=== PATIENT | female | born 1965 | race Caucasian/White ===

== ENCOUNTER 2018-05-24 12:38 | Observation (INO) | payer MEDICARE, MEDICAID ==
[~2018-05-24] VITALS: Ht 167.6 cm; Wt 77.3 kg
[2018-05-24 13:05] LABS: BASOPHILS % (AUTO) 0.6 % (0-1); EOSINOPHILS # (AUTO) 0.1 X10'3 (0-0.9); EOSINOPHILS % (AUTO) 1.5 % (0-6); HEMATOCRIT 34.4 % (35.0-45.0); HEMOGLOBIN 12.1 g/dl (12.0-16.0); LYMPHOCYTES # (AUTO) 1.3 X10'3 (1.1-4.8); LYMPHOCYTES % (AUTO) 25.7 % (21-51); MEAN CORPUSCULAR HEMOGLOBIN 31.3 PG (27.0-31.0); MEAN CORPUSCULAR HGB CONC 35.1 % (33.0-36.5); MEAN CORPUSCULAR VOLUME 89.2 FL (78-98); MEAN PLATELET VOLUME 7.4 FL (7.4-10.4); MONOCYTES # (AUTO) 0.4 X10'3 (0-0.9); NEUTROPHILS # (AUTO) 3.3 X10'3 (1.8-7.7); NEUTROPHILS % (AUTO) 65.2 % (42-75); PLATELET COUNT 245 X10'3 (140-440); RED BLOOD COUNT 3.86 X10'6 (4.20-5.60); RED CELL DISTRIBUTION WIDTH 12.9 % (11.5-14.5); WHITE BLOOD COUNT 5.1 X10'3 (4.5-11.0)
[2018-05-24 13:15] LABS: INR 0.9 INR; PARTIAL THROMBOPLASTIN TIME 24 SECONDS (22-32); PROTHROMBIN TIME 9.4 SECONDS (9.0-12.0)
[2018-05-24 13:20] LABS: ALANINE AMINOTRANSFERASE 58 U/L (12-78); ALBUMIN 3.8 G/DL (3.4-5.0); ALBUMIN/GLOBULIN RATIO 1.1 (1.1-1.5); ALKALINE PHOSPHATASE 66 IU/L (46-116); ANION GAP 7 (8-16); ASPARTATE AMINO TRANSFERASE 30 U/L (10-37); BILIRUBIN,TOTAL 0.3 MG/DL (0.1-1.0); BLOOD UREA NITROGEN 9 MG/DL (7-18); BUN/CREATININE RATIO 10.2 (6.6-38.0); CHLORIDE 102 MMOL/L (99-107); CREATININE 0.88 MG/DL (0.40-0.90); GLUCOSE 88 MG/DL (70-104); POTASSIUM 4.2 MMOL/L (3.5-5.1); SODIUM 135 MMOL/L (135-145); TOTAL CARBON DIOXIDE 26.1 MMOL/L (24-32); TOTAL PROTEIN 7.2 G/DL (6.4-8.2); eGFR 67 ML/MIN
[2018-05-24 13:56] LABS: ETHANOL < 0.010 GM/DL (0.0-0.010)
[2018-05-24] MEDS ORDERED: iohexol 350MG/ML 100ml bottle IV ONE (14:08)
[2018-05-24] MEDS ORDERED: acetaminophen 325mg tablet PO PRN ×2 (14:30)
[2018-05-24] MEDS ORDERED: magnesium 1gm/100ml D5W IVPB 100 ML IV PRN (14:30)
[2018-05-24] MEDS ORDERED: magnesium hydroxide 30ml (MOM) UD suspension PO PRN (14:30)
[2018-05-24] MEDS ORDERED: potassium Cl 40MEQ/NS 500ml 500 ML IV PRN ×2 (14:30)
[2018-05-24] MEDS ORDERED: magnesium Cl slow-release 64mg tablet PO PRN (14:30)
[2018-05-24] MEDS ORDERED: mag hydrox/Alum hydrox/simeth 30ml oral suspension PO PRN (14:30)
[2018-05-24] MEDS ORDERED: potassium Cl 20 mEq SR tablet PO PRN ×2 (14:30)
[2018-05-24] MEDS ORDERED: magnesium 4gm in 100ml NS 100 ML IV PRN (14:30)
[2018-05-24] MEDS: K and/or MAG REPLACEMENT MC SCH (14:30)
[2018-05-24] MEDS ORDERED: ondansetron/PF 4mg/2ml inj IV PRN (14:30)
[2018-05-24 14:39] LABS: CLARITY,URINE CLEAR (Clear); COLOR,URINE YELLOW (Yellow); GLUCOSE, URINE NEGATIVE (Neg); KETONES,URINE NEGATIVE (Neg); LEUKOCYTE ESTERASE ,URINE NEGATIVE (Neg); NITRITES, URINE NEGATIVE (Neg); OCCULT BLOOD,URINE NEGATIVE (Neg); PROTEIN,URINE NEGATIVE (Neg); UROBILINOGEN,URINE 0.2 E.U/dL (0.2-1.0)
[2018-05-24 14:41] LABS: UA COLLECTION TYPE CLN CATCH MIDSTREAM
[2018-05-24 14:48] LABS: URINE AMPHETAMINE SCREEN NEGATIVE (Neg); URINE BARBITUATE SCREEN NEGATIVE (Neg); URINE BENZODIAZEPINES SCREEN NEGATIVE (Neg); URINE CANNABINOID SCREEN NEGATIVE (Neg); URINE COCAINE SCREEN NEGATIVE (Neg); URINE METHADONE SCREEN NEGATIVE (Neg); URINE OPIATE SCREEN POSITIVE (Neg); URINE PHENCYCLIDINE SCREEN NEGATIVE (Neg)
[2018-05-24 14:56] LABS: HEMOGLOBIN A1C 5.8 % (4.5-6.2)
[2018-05-24] MEDS ORDERED: SUMA25TA35 PO (15:59)
[2018-05-24] MEDS ORDERED: LORA0.5T PO (15:59)
[2018-05-24] MEDS ORDERED: ESCI20TA38 PO (15:59)
[2018-05-24] MEDS ORDERED: ESTR2TAB7 PO (15:59)
[2018-05-24] MEDS ORDERED: LOSA50TA37 PO (15:59)
[2018-05-24] MEDS ORDERED: HYDR-3972 PO (15:59)
[2018-05-24] MEDS ORDERED: PANT40TA4 PO (15:59)
[2018-05-24] MEDS ORDERED: ALBU8.5H8 IH (15:59)
[2018-05-24] MEDS ORDERED: MAGN400C PO (16:00)
[2018-05-24] MEDS ORDERED: IBUP-1985 PO (16:00)
[2018-05-24] MEDS ORDERED: losartan 50mg tablet PO SCH (16:20)
[2018-05-24] MEDS ORDERED: albuterol 2.5 MG/3 ML nebule NEB PRN (16:20)
[2018-05-24] MEDS ORDERED: LORazepam 0.5 MG tablet PO PRN (16:20)
[2018-05-24] MEDS ORDERED: normal saline 1000ml 1,000 ML IV SCH (16:58)
[2018-05-24] MEDS: HYDROcodone/acetaminophen 10/325mg tab PO PRN (16:58)
[2018-05-24] MEDS ORDERED: enalaprilat dihydrate 2.5mg/2ml vial IV PRN (17:00)
[2018-05-24 17:05] VITALS: BP 205/86
[2018-05-24] MEDS: aspirin 325mg tablet PO SCH (17:13)
[2018-05-24 19:00] VITALS: BP 163/59
[2018-05-24] MEDS: temazepam 15mg capsule PO PRN (20:44)
[2018-05-24] MEDS ORDERED: temazepam 15mg capsule PO PRN (21:00)
[2018-05-24 23:00] VITALS: BP 112/48
[2018-05-25 01:57] LABS: HEMATOCRIT 32.1 % (35.0-45.0); HEMOGLOBIN 11.1 g/dl (12.0-16.0); MEAN CORPUSCULAR HEMOGLOBIN 30.8 PG (27.0-31.0); MEAN CORPUSCULAR HGB CONC 34.5 % (33.0-36.5); MEAN CORPUSCULAR VOLUME 89.3 FL (78-98); MEAN PLATELET VOLUME 7.8 FL (7.4-10.4); PLATELET COUNT 216 X10'3 (140-440); RED BLOOD COUNT 3.59 X10'6 (4.20-5.60); RED CELL DISTRIBUTION WIDTH 12.7 % (11.5-14.5); WHITE BLOOD COUNT 4.4 X10'3 (4.5-11.0)
[2018-05-25 02:13] LABS: ALANINE AMINOTRANSFERASE 43 U/L (12-78); ALBUMIN 3.2 G/DL (3.4-5.0); ALKALINE PHOSPHATASE 59 IU/L (46-116); ANION GAP 6 (8-16); ASPARTATE AMINO TRANSFERASE 21 U/L (10-37); BILIRUBIN,TOTAL 0.2 MG/DL (0.1-1.0); BLOOD UREA NITROGEN 9 MG/DL (7-18); CALCIUM 8.5 MG/DL (8.5-10.1); CHLORIDE 103 MMOL/L (99-107); GLUCOSE 94 MG/DL (70-104); POTASSIUM 3.7 MMOL/L (3.5-5.1); SODIUM 138 MMOL/L (135-145); TOTAL CARBON DIOXIDE 28.6 MMOL/L (24-32); TOTAL PROTEIN 6.5 G/DL (6.4-8.2); eGFR 65 ML/MIN
[2018-05-25 02:16] LABS: CHOL/HDL RATIO 6.6 (0.00-4.99); CHOLESTEROL 223 MG/DL (0-200); HDL CHOLESTEROL 34 MG/DL (35-60); LDL CHOLESTEROL 138 MG/DL (50-100); MAGNESIUM 1.7 MG/DL (1.5-2.4); TRIGLYCERIDES 320 MG/DL (20-135); TROPONIN I 0.08 NG/ML (0.0-0.05)
[2018-05-25 03:00] VITALS: BP 136/74
[2018-05-25 06:00] VITALS: BP 129/55
[2018-05-25] MEDS: pantoprazole 40mg Tablet.DR PO SCH (08:00)
[2018-05-25] MEDS: K and/or MAG REPLACEMENT MC SCH (08:00)
[2018-05-25] MEDS: aspirin 325mg tablet PO SCH (09:00)
[2018-05-25] MEDS: magnesium oxide 400mg tablet PO SCH (09:00)
[2018-05-25] MEDS: citalopram 20mg tablet PO SCH (09:01)
[2018-05-25] MEDS: HYDROcodone/acetaminophen 10/325mg tab PO PRN ×2 (09:01→17:43)
[2018-05-25] MEDS: estradiol 1mg tablet PO SCH (09:09)
[2018-05-25] MEDS: LORazepam 1 MG tablet PO PRN ×2 (09:30→17:43)
[2018-05-25] MEDS: atorvastatin 20mg tablet PO SCH (12:47)
[2018-05-25 15:00] VITALS: BP 125/53
[2018-05-25 19:00] VITALS: BP 133/58
[2018-05-25] MEDS: temazepam 15mg capsule PO PRN (21:07)
[2018-05-25] MEDS: losartan 50mg tablet PO SCH (21:07)
[2018-05-25 23:00] VITALS: BP 145/63
[2018-05-26 01:23] LABS: HEMATOCRIT 34.2 % (35.0-45.0); HEMOGLOBIN 11.6 g/dl (12.0-16.0); MEAN CORPUSCULAR HEMOGLOBIN 30.7 PG (27.0-31.0); MEAN CORPUSCULAR HGB CONC 33.8 % (33.0-36.5); MEAN CORPUSCULAR VOLUME 90.7 FL (78-98); MEAN PLATELET VOLUME 7.6 FL (7.4-10.4); PLATELET COUNT 210 X10'3 (140-440); RED BLOOD COUNT 3.77 X10'6 (4.20-5.60); RED CELL DISTRIBUTION WIDTH 11.9 % (11.5-14.5); WHITE BLOOD COUNT 4.6 X10'3 (4.5-11.0)
[2018-05-26 01:38] LABS: ALBUMIN 3.2 G/DL (3.4-5.0); ANION GAP 3 (8-16); BLOOD UREA NITROGEN 12 MG/DL (7-18); CALCIUM 8.9 MG/DL (8.5-10.1); CHLORIDE 103 MMOL/L (99-107); CREATININE 0.86 MG/DL (0.40-0.90); GLUCOSE 95 MG/DL (70-104); POTASSIUM 3.8 MMOL/L (3.5-5.1); SODIUM 135 MMOL/L (135-145); TOTAL CARBON DIOXIDE 28.6 MMOL/L (24-32); TROPONIN I 0.06 NG/ML (0.0-0.05); eGFR 69 ML/MIN
[2018-05-26 07:21] VITALS: BP 124/41
[2018-05-26] MEDS: K and/or MAG REPLACEMENT MC SCH (07:51)
[2018-05-26] MEDS: losartan 50mg tablet PO SCH (07:58)
[2018-05-26] MEDS: estradiol 1mg tablet PO SCH (07:58)
[2018-05-26] MEDS: HYDROcodone/acetaminophen 10/325mg tab PO PRN (07:59)
[2018-05-26] MEDS: citalopram 20mg tablet PO SCH (07:59)
[2018-05-26] MEDS: pantoprazole 40mg Tablet.DR PO SCH (08:00)
[2018-05-26] MEDS: magnesium oxide 400mg tablet PO SCH (08:00)
[2018-05-26] MEDS: aspirin 325mg tablet PO SCH (08:00)
[2018-05-26] MEDS: atorvastatin 20mg tablet PO SCH (08:00)
[2018-05-26] MEDS ORDERED: ASPI-1 PO (11:02)
[2018-05-26] MEDS ORDERED: ATOR20TA66 PO (11:02)
== END 2018-05-26 12:47 | disposition home or self-care (01) ==
LOC: ER 12:39 → ED HOLD 14:30 → PCU 3S 16:23
PROVIDERS: ADMIT Family Medicine; ATTEND Family Medicine
DX: M62.81 Muscle weakness (generalized) (principal); I16.0 Hypertensive urgency; E78.5 Hyperlipidemia, unspecified; F41.1 Generalized anxiety disorder; G47.33 Obstructive sleep apnea (adult) (pediatric); I11.0 Hypertensive heart disease with heart failure; I50.9 Heart failure, unspecified; J45.909 Unspecified asthma, uncomplicated; I34.1 Nonrheumatic mitral (valve) prolapse; F40.240 Claustrophobia; R51 Headache; E78.00 Pure hypercholesterolemia, unspecified; K25.9 Gastric ulcer, unspecified as acute or chronic, without hemorrhage or perforation; R13.10 Dysphagia, unspecified; Z79.82 Long term (current) use of aspirin; Z86.010 Personal history of colon polyps; Z90.710 Acquired absence of both cervix and uterus; Z81.8 Family history of other mental and behavioral disorders; Z79.899 Other long term (current) drug therapy
CPT/HCPCS: 36415; 70450; 70544; 70551; 71045; 71275; 80048; 80053; 80061; 80305; 80320; 81003; 83036; 83735; 84443; 84484; 85025; 85027; 85610; 85730; 87070; 92616; 93005; 93306; 93880; 96361; 96374; 97116; 97161; 97530; 99285; G0378; J7030; Q9967

== ENCOUNTER 2019-01-15 08:37 | Outpatient (CLI) | payer MEDICARE ==
[~2019-01-15 08:37] MED LIST: ALBU8.5H8 IH; ASPI-1 PO; ATOR20TA66 PO; ESCI20TA38 PO; ESTR2TAB7 PO; HYDR-3972 PO; LORA0.5T PO; LOSA50TA64 PO; MAGN400C PO; PANT40TA4 PO; SUMA25TA35 PO
== END 2019-01-15 23:59 | disposition home or self-care (01) ==
LOC: VAS 08:37
PROVIDERS: ATTEND Family Medicine
DX: I65.23 Occlusion and stenosis of bilateral carotid arteries (principal); I10 Essential (primary) hypertension; J45.909 Unspecified asthma, uncomplicated; Z88.0 Allergy status to penicillin; Z88.2 Allergy status to sulfonamides; Z88.5 Allergy status to narcotic agent; Z88.8 Allergy status to other drugs, medicaments and biological substances; Z90.710 Acquired absence of both cervix and uterus; Z79.82 Long term (current) use of aspirin; Z79.899 Other long term (current) drug therapy; Z87.891 Personal history of nicotine dependence
CPT/HCPCS: 93880

== ENCOUNTER 2021-12-10 10:38 | Outpatient (CLI) | payer MEDICARE, MEDICAID ==
[~2021-12-10 10:38] MED LIST changes: +ALBU8.5H17 IH; -ALBU8.5H8 IH; -ESCI20TA38 PO; +ESCI20TA39 PO; -PANT40TA4 PO; +PANT40TA54 PO
== END 2021-12-10 23:59 | disposition home or self-care (01) ==
LOC: VAS 10:38
PROVIDERS: ATTEND Family Medicine
DX: I65.23 Occlusion and stenosis of bilateral carotid arteries (principal)
CPT/HCPCS: 93880

== ENCOUNTER 2022-07-07 06:24 | Day surgery (SDC) | payer MEDICARE, MEDICAID, OTHER ==
[2022-07-06 15:19] LABS: BASOPHILS % (AUTO) 0.8 % (0-1); EOSINOPHILS # (AUTO) 0.1 X10'3 (0-0.9); HEMATOCRIT 34.8 % (35.0-45.0); HEMOGLOBIN 11.9 g/dl (12.0-16.0); LYMPHOCYTES # (AUTO) 1.6 X10'3 (1.1-4.8); LYMPHOCYTES % (AUTO) 32.8 % (21-51); MEAN CORPUSCULAR HEMOGLOBIN 30.7 PG (27.0-31.0); MEAN CORPUSCULAR HGB CONC 34.2 g/dL (33.0-36.5); MEAN CORPUSCULAR VOLUME 89.9 FL (78-98); MEAN PLATELET VOLUME 7.4 FL (7.4-10.4); MONOCYTES # (AUTO) 0.5 X10'3 (0-0.9); MONOCYTES % (AUTO) 10.8 % (2-12); NEUTROPHILS # (AUTO) 2.7 X10'3 (1.8-7.7); NEUTROPHILS % (AUTO) 53.6 % (42-75); PLATELET COUNT 252 X10'3 (140-440); RED BLOOD COUNT 3.87 X10'6 (4.20-5.60); RED CELL DISTRIBUTION WIDTH 13.2 % (11.5-14.5)
[2022-07-06 15:29] LABS: ALBUMIN 3.9 G/DL (3.4-5.0); ANION GAP 8 (8-16); BLOOD UREA NITROGEN 12 MG/DL (7-18); BUN/CREATININE RATIO 13.2 (6.6-38.0); CALCIUM 9.4 MG/DL (8.5-10.1); CHLORIDE 101 MMOL/L (99-107); CREATININE 0.91 MG/DL (0.40-0.90); GLUCOSE 105 MG/DL (70-104); SODIUM 138 MMOL/L (135-145); TOTAL CARBON DIOXIDE 29.1 MMOL/L (24-32); eGFR 64 ML/MIN
[2022-07-06 15:30] LABS: APTT 26 SECONDS (22-32)
[~2022-07-07] VITALS: Ht 167.6 cm; Wt 86.0 kg
[2022-07-07] VITALS (11 sets, daily range): BP systolic 108–166; BP diastolic 57–77
[2022-07-07] MEDS ORDERED: LORazepam 0.5 MG tablet PO PRN (06:45)
[2022-07-07] MEDS ORDERED: LIDOcaine/PRILOcaine 5gm cream TP ONE (06:45)
[2022-07-07] MEDS ORDERED: normal saline 1,000 ML IV SCH (06:45)
[2022-07-07] MEDS ORDERED: diphenhydrAMINE 25mg capsule PO PRN (06:45)
[2022-07-07] MEDS ORDERED: PRAV40TA3 PO (07:22)
[2022-07-07] MEDS ORDERED: ESTR2TAB6 PO (07:22)
[2022-07-07] MEDS ORDERED: LOSA100T57 PO ×2 (07:22→07:51)
[2022-07-07] MEDS ORDERED: verapamil 2.5 mg/ml inj IV ONE (07:32)
[2022-07-07] MEDS ORDERED: fentaNYL/PF 50MCG/1 ML 2ML syringe ONE (07:32)
[2022-07-07] MEDS ORDERED: midazolam 1 mg/ML 2ml injection ONE ×2 (07:32→08:47)
[2022-07-07] MEDS ORDERED: nitroGLYCERIN-Tridil 50MG/D5W 250 ML IV ONE (07:32)
[2022-07-07] MEDS ORDERED: iohexol 350MG/ML 100ml bottle IV ONE ×2 (07:32→08:55)
[2022-07-07] MEDS ORDERED: heparin 1,000unit/ml 10ml vial 10 ML ONE (07:32)
[2022-07-07] MEDS ORDERED: LIDOcaine 1% (10mg/ml) 2ml vial ONE (07:33)
[2022-07-07] MEDS ORDERED: ASPI-1071 PO (07:51)
[2022-07-07] MEDS ORDERED: MAGN500C4 PO (07:51)
[2022-07-07] MEDS ORDERED: BUSP15TA3 PO (07:51)
[2022-07-07] MEDS ORDERED: Vitamin D3 PO (07:51)
[2022-07-07] MEDS ORDERED: TRIA1TAB3 PO (07:51)
[2022-07-07] MEDS ORDERED: HYDR-3972 PO (07:51)
[2022-07-07] MEDS ORDERED: ESCI10TA PO (07:51)
[2022-07-07] MEDS ORDERED: PANT-47 PO (07:51)
[2022-07-07] MEDS ORDERED: LIDOcaine 1% 30ml preserv. free vial ONE (08:35)
[2022-07-07] MEDS ORDERED: normal saline 1000ml 1,000 ML IV SCH (09:50)
== END 2022-07-07 14:00 | disposition home or self-care (01) ==
LOC: SSTAY O 06:24
PROVIDERS: ATTEND Internal Medicine Cardiovascular Disease
DX: R94.39 Abnormal result of other cardiovascular function study (principal); I10 Essential (primary) hypertension; Q25.1 Coarctation of aorta; E78.5 Hyperlipidemia, unspecified; Z98.890 Other specified postprocedural states; Z79.899 Other long term (current) drug therapy; Z90.710 Acquired absence of both cervix and uterus; Z90.49 Acquired absence of other specified parts of digestive tract; Z88.0 Allergy status to penicillin; Z82.49 Family history of ischemic heart disease and other diseases of the circulatory system; Z88.8 Allergy status to other drugs, medicaments and biological substances; Z79.01 Long term (current) use of anticoagulants; Z86.73 Personal history of transient ischemic attack (TIA), and cerebral infarction without residual deficits
CPT/HCPCS: 36415; 76937; 80048; 85025; 85610; 85730; 93005; 93458; 93567; 99152; 99153; C1760; C1769; C1894; J1644; J2250; J3010; J3490; J7030; Q0163; Q9967; A5120; A6258